=== PATIENT | female | born 1980 | race Caucasian/White ===

== ENCOUNTER 2016-07-28 10:43 | Outpatient (CLI) | payer MEDICAID | END 2016-07-28 10:44 | disposition home or self-care (01) | DX: G47.30 Sleep apnea, unspecified (principal); G47.8 Other sleep disorders; R53.83 Other fatigue; G47.21 Circadian rhythm sleep disorder, delayed sleep phase type; F41.9 Anxiety disorder, unspecified ==

== ENCOUNTER 2016-08-08 22:03 | Outpatient (CLI) | payer MEDICAID | END 2016-08-08 22:04 | disposition home or self-care (01) | DX: G47.30 Sleep apnea, unspecified (principal) ==

== ENCOUNTER 2016-08-27 14:20 | Outpatient (CLI) | payer MEDICAID | END 2016-08-27 14:21 | disposition home or self-care (01) | DX: G47.30 Sleep apnea, unspecified (principal); G47.21 Circadian rhythm sleep disorder, delayed sleep phase type ==

== ENCOUNTER 2017-04-10 16:45 | Outpatient (CLI) | payer MEDICAID ==
[2017-04-10 13:29] LABS: BILIRUBIN,URINE NEGATIVE (NEGATIVE)
[2017-04-10 13:41] LABS: UR CULTURE IF IND NOT INDICATED; WBC,URINE 0-3 /HPF (0-5)
== END 2017-04-10 16:46 | disposition home or self-care (01) ==
LOC: LAB.R 16:45
PROVIDERS: ATTEND Nurse Practitioner Family
DX: R30.0 Dysuria (principal)
CPT/HCPCS: 81001; 87086

== ENCOUNTER 2017-06-17 16:27 | Outpatient (CLI) | payer MEDICAID ==
--- NOTE | 2017-06-18 19:01 | Ultrasound Report ---
DATE OF SERVICE: 06/17/2017 PELVIC ULTRASOUND: 06/17/2017 CLINICAL INDICATION: Pain. TECHNIQUE: Transabdominal pelvic ultrasound performed for global evaluation. Transvaginal pelvic ultrasound performed for detailed evaluation. Real-time scanning performed and static images obtained. The uterus is anteverted, measuring 7.3 x 4.6 x 3.4 cm. The endometrial echo complex measures 6 mm. A 1 cm leiomyoma is noted subserosally in the anterior myometrium. The ovaries are normal, with the right measuring 3.3 x 2.0 x 1.6, and the left measuring 3.1 x 2.1 x 1.7 cm. No free fluid is present. IMPRESSION: Small anterior leiomyoma. TD: 06/18/2017 20:01
== END 2017-06-17 16:28 | disposition home or self-care (01) ==
LOC: DI 16:27
PROVIDERS: ATTEND Nurse Practitioner Family
DX: D25.2 Subserosal leiomyoma of uterus (principal)
CPT/HCPCS: 76830; 76856

== ENCOUNTER 2017-06-20 11:05 | Outpatient (CLI) | payer MEDICAID ==
--- NOTE | 2017-06-20 12:18 | Ultrasound Report ---
EXAM: ABDOMEN ULTRASOUND EXAM DATE: 06/20/2017 11:58 AM. CLINICAL HISTORY: Lower abdominal pain. COMPARISON: None. TECHNIQUE: Real-time scanning was performed with static images obtained. FINDINGS: Liver: Normal in size and echotexture. Hepatic span is 15.1 cm. Main portal vein flow: Hepatopetal. I n the left hepatic lobe, there is an echogenic focus suggestive of hemangioma measuring up to 0.6 cm. Gallbladder: Normal. No stones, wall thickening, or sonographic Odonnell's sign. Biliary System: Common bile duct measures 3.3 mm. No intrahepatic or extrahepatic ductal dilatation. Pancreas: Visualized portion is unremarkable. Kidneys: Right: 11.2 cm longitudinally. Normal. No contour-deforming mass, stones, or hydronephrosis. Left: 10 cm longitudinally. Normal. No contour-deforming mass, stones, or hydronephrosis. Spleen: 10.4 x 4.4 x 4.2 cm. Normal in size and echotexture. Aorta and Inferior Vena Cava: Unremarkable. Other: None. IMPRESSION: Possible hemangioma seen in the left hepatic lobe measuring up to 0.6 cm, otherwise unrem arkable exam. [facility] Referring Provider Line: [phone] SITE ID: [id number]
== END 2017-06-20 11:06 | disposition home or self-care (01) ==
LOC: DI 11:05
PROVIDERS: ATTEND Nurse Practitioner Family
DX: R10.30 Lower abdominal pain, unspecified (principal)
CPT/HCPCS: 76700

== ENCOUNTER 2017-11-19 14:40 | Outpatient (CLI) | payer MEDICAID ==
[2017-11-19 17:45] LABS: BASOPHILS # (AUTO) 0.1 10^3/uL (0.0-0.1); BASOPHILS % (AUTO) 0.9 %; EOSINOPHILS # (AUTO) 0.1 10^3/uL (0.0-0.7); EOSINOPHILS % (AUTO) 1.6 %; HGB - HEMOGLOBIN 13.4 g/dL (12.0-16.0); LYMPHOCYTES # (AUTO) 2.2 10^3/uL (1.5-3.5); LYMPHOCYTES % (AUTO) 33.9 %; MEAN CORPUSCULAR HEMOGLOBIN 31.1 pg (27.0-31.0); MEAN CORPUSCULAR HGB CONC 32.9 g/dL (32.0-36.0); MEAN CORPUSCULAR VOLUME 94.5 fL (81.0-99.0); MEAN PLATELET VOLUME 7.8 fL (7.9-10.8); MONOCYTES # (AUTO) 0.4 10^3/uL (0.0-1.0); NEUTROPHILS # (AUTO) 3.8 10^3/uL (1.5-6.6); NEUTROPHILS % (AUTO) 57.6 %; PLT - PLATELET COUNT 316 10^3/uL (130-450); RED CELL DISTRIBUTION WIDTH 13.1 % (12.0-15.0); WHITE BLOOD COUNT 6.6 x10^3/uL (4.8-10.8)
[2017-11-19 18:19] LABS: THYROID STIMULATING HORMONE 1.55 uIU/mL (0.34-5.60)
[2017-11-19 18:20] LABS: ALBUMIN/GLOBULIN RATIO 1.2 (1.0-2.2); BILIRUBIN,TOTAL 0.7 mg/dL (0.2-1.0); CALCIUM 9.1 mg/dL (8.5-10.3); CREATININE 0.7 mg/dL (0.4-1.0); FREE T4 (FREE THYROXINE) 0.71 ng/dL (0.58-1.64); TOTAL PROTEIN 7.4 g/dL (6.7-8.2)
[2017-11-19 18:22] LABS: FERRITIN 8.1 ng/mL (11.0-306.8)
== END 2017-11-19 14:41 | disposition home or self-care (01) ==
LOC: LAB.F 14:40
PROVIDERS: ATTEND Registered Nurse
DX: F33.0 Major depressive disorder, recurrent, mild (principal)
CPT/HCPCS: 36415; 80050; 82728; 84439; 84481

== ENCOUNTER 2019-01-25 09:59 | Outpatient (CLI) | payer MEDICAID ==
[2019-01-25 18:49] LABS: BASOPHILS % (AUTO) 0.6 %; EOSINOPHILS # (AUTO) 0.1 10^3/uL (0.0-0.7); EOSINOPHILS % (AUTO) 1.3 %; HGB - HEMOGLOBIN 12.6 g/dL (12.0-16.0); LYMPHOCYTES % (AUTO) 29.7 %; MEAN CORPUSCULAR HEMOGLOBIN 30.4 pg (27.0-31.0); MEAN CORPUSCULAR HGB CONC 31.2 g/dL (32.0-36.0); MEAN CORPUSCULAR VOLUME 97.3 fL (81.0-99.0); MEAN PLATELET VOLUME 9.7 fL (7.9-10.8); MONOCYTES # (AUTO) 0.5 10^3/uL (0.0-1.0); MONOCYTES % (AUTO) 7.9 %; NEUTROPHILS % (AUTO) 60.2 %; PLT - PLATELET COUNT 305 10^3/uL (130-450); RED BLOOD COUNT 4.15 10^6/uL (4.20-5.40); RED CELL DISTRIBUTION WIDTH 13.7 % (12.0-15.0); WHITE BLOOD COUNT 6.7 x10^3/uL (4.8-10.8)
[2019-01-25 18:54] LABS: ALBUMIN 4.1 g/dL (3.2-5.5); ALBUMIN/GLOBULIN RATIO 1.2 (1.0-2.2); ALKALINE PHOSPHATASE 31 IU/L (42-121); ALT ALANINE AMINOTRANSFERASE 15 IU/L (10-60); AST ASPARTATE AMINOTRANSFERASE 16 IU/L (10-42); BILIRUBIN,TOTAL 0.9 mg/dL (0.2-1.0); BUN - BLOOD UREA NITROGEN 8 mg/dL (6-20); CARBON DIOXIDE - CO2 25 mmol/L (21-32); CHLORIDE 108 mmol/L (101-111); CHOLESTEROL 224 mg/dL; CREATININE 0.7 mg/dL (0.4-1.0); GFR - MDRD 95 (>89); GLUCOSE 96 mg/dL (70-100); HDL CHOLESTEROL 75 mg/dL; LDL CHOLESTEROL,CALCULATED 129 mg/dL; LDL/HDL RATIO 1.7 (<4.4); SODIUM 138 mmol/L (135-145); TOTAL PROTEIN 7.5 g/dL (6.7-8.2); VLDL CHOLESTEROL 20 mg/dL
[2019-01-25 18:59] LABS: CRP HIGH SENSITIVITY < 0.5 mg/L; THYROID STIMULATING HORMONE 2.19 uIU/mL (0.34-5.60)
[2019-01-25 19:00] LABS: FREE T4 (FREE THYROXINE) 0.87 ng/dL (0.58-1.64)
[2019-01-25 19:04] LABS: TOTAL T3 1.14 ng/mL (0.87-1.78)
[2019-01-25 19:05] LABS: FERRITIN 13.6 ng/mL (11.0-306.8)
[2019-01-25 19:33] LABS: HB2 TOTAL 13.2 g/dL; HEMOGLOBIN A1C 0.45 g/dL; HEMOGLOBIN A1C % 5.3 % (4.6-6.2)
[2019-01-26 10:53] LABS: HOMOCYSTEINE 6.3 umol/L (<10.4)
== END 2019-01-25 10:00 | disposition home or self-care (01) ==
LOC: LAB.S 09:59
PROVIDERS: ATTEND Family Medicine
DX: Z00.00 Encounter for general adult medical examination without abnormal findings (principal); E03.9 Hypothyroidism, unspecified; E55.9 Vitamin D deficiency, unspecified; D64.9 Anemia, unspecified; R53.83 Other fatigue; R73.09 Other abnormal glucose; R79.89 Other specified abnormal findings of blood chemistry
CPT/HCPCS: 36415; 80050; 80061; 82306; 82728; 83036; 83090; 83721; 84439; 84480; 84481; 84482; 85651; 86141

== ENCOUNTER 2019-11-24 13:51 | Outpatient (CLI) | payer MEDICAID | END 2019-11-24 13:52 | disposition home or self-care (01) | LOC: LAB 13:51 | PROVIDERS: ATTEND Family Medicine | DX: Z20.828 Contact with and (suspected) exposure to other viral communicable diseases (principal) | CPT/HCPCS: 81599 ==

== ENCOUNTER 2020-07-27 13:14 | Outpatient (CLI) | payer MEDICAID ==
[2020-07-27 19:52] LABS: BASOPHILS # (AUTO) 0.1 10^3/uL (0.0-0.1); BASOPHILS % (AUTO) 0.9 %; EOSINOPHILS # (AUTO) 0.1 10^3/uL (0.0-0.7); EOSINOPHILS % (AUTO) 0.9 %; HCT - HEMATOCRIT 40.2 % (37.0-47.0); HGB - HEMOGLOBIN 13.2 g/dL (12.0-16.0); LYMPHOCYTES # (AUTO) 1.7 10^3/uL (1.5-3.5); LYMPHOCYTES % (AUTO) 25.6 %; MEAN CORPUSCULAR HEMOGLOBIN 32.1 pg (27.0-31.0); MEAN CORPUSCULAR HGB CONC 32.8 g/dL (32.0-36.0); MEAN CORPUSCULAR VOLUME 97.8 fL (81.0-99.0); MEAN PLATELET VOLUME 9.4 fL (7.9-10.8); MONOCYTES # (AUTO) 0.5 10^3/uL (0.0-1.0); MONOCYTES % (AUTO) 6.8 %; NEUTROPHILS # (AUTO) 4.3 10^3/uL (1.5-6.6); NEUTROPHILS % (AUTO) 65.5 %; PLT - PLATELET COUNT 333 10^3/uL (130-450); RED BLOOD COUNT 4.11 10^6/uL (4.20-5.40); RED CELL DISTRIBUTION WIDTH 12.3 % (12.0-15.0); WHITE BLOOD COUNT 6.6 x10^3/uL (4.8-10.8)
[2020-07-27 19:54] LABS: BILIRUBIN,URINE NEGATIVE (NEGATIVE); GLUCOSE, URINE (UA) NEGATIVE (NEGATIVE); KETONES,URINE (UA) NEGATIVE (NEGATIVE); LEUKOCYTE ESTERASE, URINE NEGATIVE (NEGATIVE); NITRITE,URINE NEGATIVE (NEGATIVE); OCCULT BLOOD,URINE NEGATIVE (NEGATIVE); PH,URINE 8.5 PH (5.0-7.5); PROTEIN,URINE NEGATIVE (NEGATIVE); UROBILINOGEN,URINE 0.2 (NORMAL) E.U./dL (NORMAL)
[2020-07-27 20:06] LABS: CLARITY,URINE CLEAR (CLEAR)
[2020-07-27 20:15] LABS: ALBUMIN 4.1 g/dL (3.2-5.5); ALBUMIN/GLOBULIN RATIO 1.4 (1.0-2.2); ALKALINE PHOSPHATASE 34 IU/L (42-121); ALT ALANINE AMINOTRANSFERASE 14 IU/L (10-60); AST ASPARTATE AMINOTRANSFERASE 17 IU/L (10-42); BILIRUBIN,TOTAL 0.3 mg/dL (0.2-1.0); BUN - BLOOD UREA NITROGEN 10 mg/dL (6-20); CALCIUM 9.4 mg/dL (8.5-10.3); CARBON DIOXIDE - CO2 24 mmol/L (21-32); CHLORIDE 106 mmol/L (101-111); CREATININE 0.8 mg/dL (0.4-1.0); GFR - MDRD 80 (>89); GLUCOSE 102 mg/dL (70-100); POTASSIUM 4.3 mmol/L (3.5-5.0); SODIUM 138 mmol/L (135-145)
[2020-07-27 20:16] LABS: CRP HIGH SENSITIVITY < 0.5 mg/L
[2020-07-27 20:27] LABS: BACTERIA,URINE Few /HPF (None Seen); MUCUS,URINE Few Strands; RBC,URINE None Seen /HPF (0-5); SQUAMOUS EPITHELIAL CELL,UR FEW Squamous (<= Few); WBC,URINE 0-3 /HPF (0-5)
[2020-07-27 20:29] LABS: ESTIMATED AVERAGE GLUCOSE 97 mg/dL (70-100)
[2020-07-27 20:32] LABS: THYROID STIMULATING HORMONE 1.14 uIU/mL (0.34-5.60)
[2020-07-27 20:34] LABS: FREE T4 (FREE THYROXINE) 0.97 ng/dL (0.58-1.64)
[2020-07-27 20:35] LABS: FREE T3 2.95 pg/mL (2.5-3.9)
[2020-07-27 20:39] LABS: TOTAL T3 0.59 ng/mL (0.87-1.78)
[2020-07-31 11:56] LABS: HOMOCYSTEINE 5.7 umol/L (<10.4)
== END 2020-07-27 13:15 | disposition home or self-care (01) ==
LOC: LAB.S 13:14
PROVIDERS: ATTEND Family Medicine
DX: R10.813 Right lower quadrant abdominal tenderness (principal); K59.00 Constipation, unspecified; R11.0 Nausea; R68.83 Chills (without fever); R53.83 Other fatigue; E55.9 Vitamin D deficiency, unspecified; R35.8 Other polyuria; R10.9 Unspecified abdominal pain
CPT/HCPCS: 36415; 80050; 81001; 82626; 82728; 83036; 83090; 84439; 84480; 84481; 84482; 86141

== ENCOUNTER 2021-02-05 16:25 | Outpatient (CLI) | payer MEDICAID ==
[2021-02-05 20:18] LABS: THYROID STIMULATING HORMONE 0.77 uIU/mL (0.34-5.60)
[2021-02-05 20:19] LABS: FREE T4 (FREE THYROXINE) 0.85 ng/dL (0.58-1.64)
[2021-02-05 20:21] LABS: FREE T3 3.28 pg/mL (2.5-3.9)
[2021-02-05 20:26] LABS: FERRITIN 50.7 ng/mL (11.0-306.8)
== END 2021-02-05 16:26 | disposition home or self-care (01) ==
LOC: LAB.S 16:25
PROVIDERS: ATTEND Family Medicine
DX: M62.838 Other muscle spasm (principal); D64.9 Anemia, unspecified; R10.9 Unspecified abdominal pain; R11.0 Nausea; R20.2 Paresthesia of skin
CPT/HCPCS: 36415; 82607; 82728; 82746; 82784; 83516; 83735; 83921; 84439; 84443; 84481

== ENCOUNTER 2021-08-19 08:31 | Outpatient (CLI) | payer MEDICAID ==
--- NOTE | 2021-08-19 12:48 | XRAY Report ---
PROCEDURE: Cervical Spine 2 View INDICATIONS: NECK PAIN TECHNIQUE: 3 views of the cervical spine were acquired. COMPARISON: None. FINDINGS: Bones: No fractures or subluxation to the T1 level. The lateral masses of C1 appear intact on the o dontoid view. There is minimal anterolisthesis at C7-T1. Mild disc space narrowing also demonstrated at C7-T1. No suspicious bony lesions. Soft tissues: No prevertebral soft tissue swelling. IMPRESSION: 1. Minimal anterolisthesis at C7-T1 with mild disc space narrowing. Reviewed by: Jeremy Jacob MD on 08/19/2021 12:47 PM PDT Approved by: Jeremy Jacob MD on 08/19/2021 12:47 PM PDT Station ID: [id number]
== END 2021-08-19 08:32 | disposition home or self-care (01) ==
LOC: DI.S 08:31
PROVIDERS: ATTEND Family Medicine
DX: M43.13 Spondylolisthesis, cervicothoracic region (principal)

== ENCOUNTER 2021-09-26 08:28 | Outpatient (CLI) | payer MEDICAID ==
--- NOTE | 2021-09-26 10:15 | XRAY Report ---
PROCEDURE: Chest 2 View X-Ray INDICATIONS: TB SCREENING TECHNIQUE: 2 view(s) of the chest. COMPARISON: None. FINDINGS: Surgical changes and devices: None. Lungs and pleura: No pleural effusions or pneumothorax. Lungs are clear. Mediastinum: Mediastinal contours are normal. Heart size is normal. Bones and chest wall: No suspicious bony abnormalities. Soft tissues appear unremarkable. IMPRESSION: Normal chest radiographs. Reviewed by: Deshawn Austin MD on 09/26/2021 10:14 AM PDT Approved by: Deshawn Austin MD on 09/26/2021 10:14 AM PDT Station ID: [id number]
== END 2021-09-26 08:29 | disposition home or self-care (01) ==
LOC: DI.S 08:28
PROVIDERS: ATTEND Naturopath
DX: Z11.1 Encounter for screening for respiratory tuberculosis (principal)